=== PATIENT | female | born 1965 | race African-American/Black ===

== ENCOUNTER 2018-12-17 15:51 | Emergency (ER) | payer MEDICAID ==
[~2018-12-17] VITALS: Ht 157.5 cm; Wt 89.0 kg
[~2018-12-17 15:51] MED LIST: AMLODIPINE10 MG PO; AMLODIPINE5 MG PO; AMOXICILLIN500 MG PO; AUGMENTIN875 MG OR; CELEXA10 MG PO; CEPHALEXIN500 MG PO; CLONIDINE HCL0.1 MG OR; DOXYCYC MONO100 MG OR; EFFEXOR XR75 MG PO; FLEXERIL PO; GEODON40 MG PO; HYDROCHLOROT12.5 MG PO; LORTAB 5 OR; METHOCARBAM500 MG PO; NAPROSYN375 MG PO; NAPROSYN500 MG OR; NAPROSYN500 MG PO; NO HOME MEDS; PRAVASTATIN SOD20 MG PO; RISPERDAL0.5 MG PO; TRILEPTAL150 M1 PO; ULTRAM50 M1 PO; ULTRAM50 MG OR; ULTRAM50 MG PO; VENLAFAXINE H37.5 MG PO
[2018-12-17] MEDS ORDERED: LISINOP/HCTZ1 TA1 PO (17:15)
[2018-12-17] MEDS ORDERED: PRAVASTATIN20 MG PO (17:15)
[2018-12-17] MEDS ORDERED: AMLODIPINE BESY10 MG PO (17:15)
[2018-12-17] MEDS ORDERED: CYCLOBENZAPR5 MG PO (17:18)
[2018-12-17 17:20] VITALS: BP 195/113
== END 2018-12-17 17:26 | disposition home or self-care (01) ==
LOC: ED 15:51
DX: I10 Essential (primary) hypertension (principal); M62.830 Muscle spasm of back; T46.5X6A Underdosing of other antihypertensive drugs, initial encounter

== ENCOUNTER 2019-06-14 | Emergency (ER) | payer MEDICAID ==
[~2019-06-14] MED LIST changes: +AMLODIPINE BESY10 MG PO; +CYCLOBENZAPR5 MG PO; +LISINOP/HCTZ1 TA1 PO; +PRAVASTATIN20 MG PO
[2019-06-14] MEDS ORDERED: LISINOPRIL10 M1 PO (17:32)
[2019-06-14] MEDS ORDERED: CLONIDINE HCL0.1 MG PO (17:32)
[2019-06-14] MEDS ORDERED: NORVASC10 M1 PO (17:32)
[2019-06-14] MEDS ORDERED: LISINOP/HCTZ1 TA1 PO (17:33)
[2019-06-14] MEDS ORDERED: HYDROXYZ HCL10 MG PO (17:34)
[2019-06-14] MEDS ORDERED: VENLAFAXINE HC150 MG PO (17:34)
[2019-06-14] MEDS ORDERED: MIRTAZAPINE30 M2 PO (17:34)
[2019-06-14] MEDS ORDERED: OXCARBAZEPINE600 MG PO (17:35)
[2019-06-14] MEDS ORDERED: RISPERDAL3 MG PO (17:35)
[2019-06-14] MEDS ORDERED: AMOX/K CLAV875 M1 PO (17:47)
== END 2019-06-14 17:55 | disposition home or self-care (01) ==
DX: S81.852A Open bite, left lower leg, initial encounter (principal); I10 Essential (primary) hypertension; W54.0XXA Bitten by dog, initial encounter; Y92.410 Unspecified street and highway as the place of occurrence of the external cause

== ENCOUNTER 2019-06-16 14:48 | Emergency (ER) | payer MEDICAID ==
[~2019-06-16 14:48] MED LIST changes: +AMOX/K CLAV875 M1 PO; +CLONIDINE HCL0.1 MG PO; +HYDROXYZ HCL10 MG PO; +LISINOPRIL10 M1 PO; +MIRTAZAPINE30 M2 PO; +NORVASC10 M1 PO; +OXCARBAZEPINE600 MG PO; +RISPERDAL3 MG PO; +VENLAFAXINE HC150 MG PO
[2019-06-16 15:30] VITALS: BP 155/77
== END 2019-06-16 15:30 | disposition home or self-care (01) ==
LOC: ED 14:48
DX: S81.852D Open bite, left lower leg, subsequent encounter (principal); L08.9 Local infection of the skin and subcutaneous tissue, unspecified; T36.96XA Underdosing of unspecified systemic antibiotic, initial encounter; I10 Essential (primary) hypertension; W54.0XXD Bitten by dog, subsequent encounter; Z91.128 Patient's intentional underdosing of medication regimen for other reason

== ENCOUNTER 2019-06-18 | Emergency (ER) | payer MEDICAID | END 2019-06-18 12:04 | disposition home or self-care (01) | DX: S81.852D Open bite, left lower leg, subsequent encounter (principal); W54.0XXD Bitten by dog, subsequent encounter; Z23 Encounter for immunization ==

== ENCOUNTER 2019-06-21 | Emergency (ER) | payer MEDICAID | END 2019-06-21 19:19 | disposition home or self-care (01) | DX: Z23 Encounter for immunization (principal); S81.852D Open bite, left lower leg, subsequent encounter; W54.0XXD Bitten by dog, subsequent encounter ==

== ENCOUNTER 2020-05-21 12:03 | Emergency (ER) | payer OTHER, MEDICAID ==
[~2020-05-21] VITALS: Ht 157.5 cm; Wt 85.0 kg
[2020-05-21 15:10] VITALS: BP 137/89
== END 2020-05-21 15:10 | disposition home or self-care (01) | DRG 552 ==
LOC: ED 12:03
DX: S16.1XXA Strain of muscle, fascia and tendon at neck level, initial encounter (principal); S39.012A Strain of muscle, fascia and tendon of lower back, initial encounter; S29.012A Strain of muscle and tendon of back wall of thorax, initial encounter; I10 Essential (primary) hypertension; F31.9 Bipolar disorder, unspecified; F20.9 Schizophrenia, unspecified; V40.5XXA Car driver injured in collision with pedestrian or animal in traffic accident, initial encounter

== ENCOUNTER 2020-05-27 15:26 | Emergency (ER) | payer OTHER, MEDICAID ==
[~2020-05-27] VITALS: Ht 157.5 cm; Wt 90.0 kg
[2020-05-27] MEDS ORDERED: MOTRIN800 MG PO (16:22)
[2020-05-27] MEDS ORDERED: AMLODIPINE BESY10 MG PO (16:33)
[2020-05-27] MEDS ORDERED: RISPERIDONE3 M1 PO (16:33)
[2020-05-27] MEDS ORDERED: CLONIDINE HCL0.1 MG PO (16:34)
[2020-05-27] MEDS ORDERED: MIRTAZAPINE30 M2 PO (16:35)
[2020-05-27] MEDS ORDERED: OXCARBAZEPINE600 MG PO (16:35)
[2020-05-27 16:54] VITALS: BP 140/89
== END 2020-05-27 16:54 | disposition home or self-care (01) | DRG 563 ==
LOC: ED 15:26
DX: S39.012A Strain of muscle, fascia and tendon of lower back, initial encounter (principal); I10 Essential (primary) hypertension; F31.9 Bipolar disorder, unspecified; V40.5XXA Car driver injured in collision with pedestrian or animal in traffic accident, initial encounter

== ENCOUNTER 2021-08-04 10:27 | Emergency (ER) | payer MEDICAID ==
[~2021-08-04] VITALS: Ht 157.5 cm; Wt 92.2 kg
[~2021-08-04 10:27] MED LIST changes: +MOTRIN800 MG PO; +RISPERIDONE3 M1 PO
[2021-08-04 10:34] VITALS: BP 165/103
[2021-08-04] MEDS ORDERED: AMOX/K CLAV875 M1 PO (10:47)
[2021-08-04 10:59] VITALS: BP 169/108
[2021-08-04 11:00] VITALS: BP 176/108
[2021-08-04 11:34] VITALS: BP 176/108
== END 2021-08-04 11:35 | disposition home or self-care (01) ==
LOC: ED 10:27
DX: S81.852A Open bite, left lower leg, initial encounter (principal); I10 Essential (primary) hypertension; F31.9 Bipolar disorder, unspecified; W54.0XXA Bitten by dog, initial encounter

== ENCOUNTER 2023-12-31 09:26 | Emergency (ER) | payer MEDICAID ==
[~2023-12-31] VITALS: Ht 157.5 cm; Wt 90.7 kg
[2023-12-31 09:32] VITALS: BP 160/98
[2023-12-31] MEDS ORDERED: CEPHALEXIN500 M1 PO (09:46)
[2023-12-31] MEDS ORDERED: ZOFRAN4 MG/TAB PO (09:46)
[2023-12-31] MEDS ORDERED: BACTRIM DS1 TAB PO (09:46)
[2023-12-31] MEDS ORDERED: TRAMADOL HYDROC50 M1 PO (09:46)
[2023-12-31 09:52] VITALS: BP 144/76
[2023-12-31 10:12] VITALS: BP 144/76
== END 2023-12-31 10:12 | disposition home or self-care (01) ==
LOC: ED 09:26
DX: L03.115 Cellulitis of right lower limb (principal); I10 Essential (primary) hypertension; F31.9 Bipolar disorder, unspecified; F20.9 Schizophrenia, unspecified